=== PATIENT | female | born 1965 | race Two or more races ===

== ENCOUNTER 2024-01-08 17:35 | Inpatient (IN) | payer MEDICAID ==
[~2024-01-08] VITALS: Ht 154.9 cm; Wt 80.4 kg
[2024-01-08 18:38] LABS: Basophils # (auto) 0 10 ^3/uL (0-0.2); Basophils % (auto) 0.5 % (0.0-2.0); Eosinophils # (auto) 0.1 10 ^3/uL (0-0.8); Eosinophils % (auto) 0.7 % (0.0-7.0); Hematocrit 46.8 % (36.0-46.0); Hemoglobin 15.7 g/dL (12.2-16.2); Lymphocytes # (auto) 2.3 10 ^3/uL (0.4-5.4); Lymphocytes % (auto) 26.7 % (10.0-50.0); Mean Corpuscular Hemoglobin 29.5 pg (28.0-32.0); Mean Corpuscular Hgb Conc. 33.6 g/dL (32.0-36.0); Mean Corpuscular Volume 87.7 fL (80.0-100.0); Monocytes # (auto) 0.5 10 ^3/uL (0-1.3); Monocytes % (auto) 5.2 % (0.0-12.0); Neutrophils # (auto) 5.8 10 ^3/uL (1.6-8.6); Neutrophils % (auto) 66.9 % (37.0-80.0); Nucleated Red Blood Cells % 0.1 %; Red Blood Cells 5.34 10^6/uL (4.0-5.20); White Blood Cell 8.6 10^3/uL (4.4-10.8)
[2024-01-08] MEDS: SODIUM CHLORIDE 0.9% 1,000 ML IVB ONE (18:38)
[2024-01-08 18:52] LABS: Urine Bacteria FEW /hpf (None Seen); Urine Blood Negative /uL (Negative); Urine Clarity Clear (Clear); Urine Color Colorless (Yellow); Urine Protein, UAD Negative (Negative); Urine Specific Gravity 1.007 (1.001-1.035); Urine Urobilinogen Normal (Negative); Urine WBC 1 /hpf (0 - 5); Urine pH 6.5 (5.0-9.0)
[2024-01-08 18:53] VITALS: PULSE 113; RESP 20; O2SAT 97
[2024-01-08 18:57] LABS: Alanine Aminotransferase 42 U/L (7-40); Alkaline Phosphatase 131 U/L (46-116); Anion Gap 7 (5-15); Aspartate Aminotransferase 43 U/L (13-40); BUN/Creatinine Ratio 24.6 (10.0-20.0); Blood Alcohol < 3.0 mg/dL (<10); Blood Urea Nitrogen 17 mg/dL (9-23); Calcium 10.2 mg/dL (8.5-10.1); Carbon Dioxide 25 mmol/L (20-30); Chloride 108 mmol/L (98-107); Glucose 118 mg/dL (74-106); Potassium 4.2 mmol/L (3.5-5.1); Sodium 140 mmol/L (136-145)
[2024-01-08 18:58] LABS: Total Protein 7.5 g/dL (5.7-8.2)
[2024-01-08 19:07] LABS: Amphetamine Screen, Urine Neg (NEGATIVE)
[2024-01-08 19:08] LABS: Barbiturate Scree,Urine Neg (NEGATIVE); Benzodiazephine Screen, Urine Neg (NEGATIVE); Cannabinoid Screen, Urine Neg (NEGATIVE); Cocaine Screen, Urine Neg (NEGATIVE); Opiate Scree,Urine Neg (NEGATIVE); Phencyclidine Screen, Urine Neg (NEGATIVE)
[2024-01-08 19:20] VITALS: PULSE 113; RESP 17; O2SAT 97
[2024-01-08] MEDS ORDERED: ONDANSETRON HCL 4 MG/2 ML VIAL IV PRN (21:15)
[2024-01-08] MEDS ORDERED: MORPHINE SULFATE INJ 2 MG/ml SYRG IV PRN (21:15)
[2024-01-08] MEDS ORDERED: NITROGLYCERIN 0.4 MG SL TAB SL PRN (21:15)
[2024-01-08] MEDS: ACETAMINOPHEN 325 MG TAB PO PRN (23:21)
[2024-01-08] MEDS: ENOXAPARIN SOD 100 MG/1 ML SYRINGE SC ONE (23:23)
[2024-01-09 05:16] LABS: Basophils # (auto) 0 10 ^3/uL (0-0.2); Basophils % (auto) 0.6 % (0.0-2.0); Eosinophils # (auto) 0.1 10 ^3/uL (0-0.8); Hematocrit 41.4 % (36.0-46.0); Lymphocytes # (auto) 2.8 10 ^3/uL (0.4-5.4); Lymphocytes % (auto) 36.9 % (10.0-50.0); Mean Corpuscular Hemoglobin 29.4 pg (28.0-32.0); Mean Corpuscular Hgb Conc. 33.7 g/dL (32.0-36.0); Mean Corpuscular Volume 87.1 fL (80.0-100.0); Monocytes # (auto) 0.5 10 ^3/uL (0-1.3); Monocytes % (auto) 6.6 % (0.0-12.0); Neutrophils # (auto) 4.1 10 ^3/uL (1.6-8.6); Neutrophils % (auto) 54.9 % (37.0-80.0); Nucleated Red Blood Cells % 0.1 %; Red Blood Cells 4.75 10^6/uL (4.0-5.20); Red Cell Distribution Width 13.9 % (11.8-14.3); White Blood Cell 7.5 10^3/uL (4.4-10.8)
[2024-01-09 05:34] LABS: Alanine Aminotransferase 28 U/L (7-40); Alkaline Phosphatase 100 U/L (46-116); Anion Gap 5 (5-15); Blood Urea Nitrogen 12 mg/dL (9-23); Calcium 9.4 mg/dL (8.7-10.4); Carbon Dioxide 26 mmol/L (20-30); Chloride 109 mmol/L (98-107); Glucose 97 mg/dL (74-106); Potassium 3.8 mmol/L (3.5-5.1); Sodium 140 mmol/L (136-145)
[2024-01-09 05:35] LABS: Aspartate Aminotransferase 35 U/L (13-40); Bilirubin, Total 2.1 mg/dL (0.2-1.0); Total Protein 6.7 g/dL (5.7-8.2)
[2024-01-09] MEDS: LEVOTHYROXINE SODIUM 25 MCG TAB PO SCH (06:00)
[2024-01-09 08:44] LABS: Magnesium 2.2 mg/dL (1.6-2.6)
[2024-01-09] MEDS: ASPirin 81 mg TAB PO SCH (08:58)
[2024-01-09] MEDS: LISINOPRIL 5 MG TAB PO SCH (08:59)
[2024-01-09] MEDS: ENOXAPARIN SOD 100 MG/1 ML SYRINGE SC SCH (10:00)
[2024-01-09] MEDS ORDERED: LORazepam 2MG/ML-1ML VIAL IV PRN (10:45)
[2024-01-09 13:00] VITALS: BP 118/81; PULSE 82; RESP 18; TEMP 97.8; O2SAT 96
[2024-01-09] MEDS ORDERED: LISI-275 PO (13:44)
[2024-01-09] MEDS: KETOROLAC TROMETH 30 MG/ML 1ML VIAL IV ONE (16:47)
[2024-01-09 16:53] VITALS: BP 117/62; PULSE 86; RESP 20; TEMP 97.8; O2SAT 98
[2024-01-09] MEDS ORDERED: LEVO25TA6 PO (17:10)
[2024-01-09 20:00] VITALS: PULSE 77
[2024-01-09 20:05] VITALS: PULSE 85; RESP 18; O2SAT 98
[2024-01-09] MEDS: ATORVASTATIN 20 MG TAB PO SCH (21:18)
[2024-01-09] MEDS ORDERED: KETOROLAC TROMETH 30 MG/ML 1ML VIAL IV PRN (23:00)
[2024-01-10] VITALS (11 sets, daily range): BP systolic 105–141; BP diastolic 69–86; PULSE 76–102; RESP 14–19; TEMP 37; O2SAT 95–99
[2024-01-10 06:29] LABS: Anion Gap 6 (5-15); Carbon Dioxide 26 mmol/L (20-30); Chloride 109 mmol/L (98-107); Potassium 3.7 mmol/L (3.5-5.1); Sodium 141 mmol/L (136-145)
[2024-01-10 06:30] LABS: Calcium 9.8 mg/dL (8.5-10.1)
[2024-01-10 06:35] LABS: BUN/Creatinine Ratio 19.1 (10.0-20.0); Blood Urea Nitrogen 13 mg/dL (9-23); Glucose 102 mg/dL (74-106)
[2024-01-10] MEDS: LIDOCAINE VISCOUS 2% 15ML UD PO ONE (09:13)
[2024-01-10] MEDS: fentaNYL CITRATE 100 MCG/2 ML VL IV ONE (09:16)
[2024-01-10] MEDS: MIDAZOLAM HCL 2MG/2ML 2ml VIAL (1mg/ml) IV ONE (09:16)
[2024-01-10] MEDS: NITROGLYCERIN 0.2MG/HR TOPICAL PATCH TD SCH (12:02)
[2024-01-10] MEDS ORDERED: METO25TA5 PO (13:26)
[2024-01-10] MEDS ORDERED: ATOR-507 PO (13:26)
[2024-01-10] MEDS ORDERED: ASPI-498 OR (13:26)
[2024-01-14 15:07] LABS: Vitamin D 25-Hydroxy 19 ng/mL (.); Vitamin D-2 25-Hydroxy <1.0 ng/mL (.); Vitamin D-3 25-Hydroxy 18 ng/mL (.)
[2024-01-16 10:06] LABS: Vitamin B1, Whole Blood 130.3 nmol/L (66.5-200.0)
== END 2024-01-10 17:39 | disposition home or self-care (01) | DRG 45 ==
LOC: ER 17:35 → TELE 21:05 → TELE-WESTW 01-09 12:54
PROVIDERS: ADMIT Nurse Practitioner; ATTEND Nurse Practitioner Acute Care
PROC: B246ZZ4 Ultrasonography of Right and Left Heart, Transesophageal (ICD-10-PCS; principal; 2024-01-10)
DX: I63.9 Cerebral infarction, unspecified (principal); I21.A1 Myocardial infarction type 2; R74.01 Elevation of levels of liver transaminase levels; E78.5 Hyperlipidemia, unspecified; I10 Essential (primary) hypertension; E66.9 Obesity, unspecified; E07.9 Disorder of thyroid, unspecified; I49.3 Ventricular premature depolarization; I16.1 Hypertensive emergency; I25.2 Old myocardial infarction; Z68.33 Body mass index [BMI] 33.0-33.9, adult
CPT/HCPCS: 36415; 70450; 70551; 71045; 76705; 80048; 80053; 80061; 80307; 80320; 81001; 82140; 82306; 82607; 82962; 83036; 83605; 83735; 83880; 84425; 84443; 84484; 85025; 85379; 87040; 92610; 93005; 93312; 93886; 96360; 96361; 97110; 97116; 97163; 97530; 99152; 99291; G0378; J1885; J2250

== ENCOUNTER → 2024-05-23 | Outpatient (CLI) | payer MEDICAID ==
[~2024-05-23] VITALS: Ht 152.4 cm; Wt 75.7 kg
[~2024-05-23] MED LIST: ADENOSINE 64 MG in GIVE UN-DILUTED 0 ML IV ONE; ASPI-498 OR; ATOR-507 PO; LEVO25TA6 PO; LISI-275 PO; METO25TA5 PO
== END | disposition home or self-care (01) ==
LOC: XYW 09:34
PROVIDERS: ATTEND Internal Medicine
DX: R00.1 Bradycardia, unspecified (principal); R07.9 Chest pain, unspecified; R06.02 Shortness of breath; R60.9 Edema, unspecified; I50.9 Heart failure, unspecified; I42.0 Dilated cardiomyopathy
CPT/HCPCS: 78452; 93017; A9500; J0153

== ENCOUNTER → 2024-08-08 | Outpatient (CLI) | payer MEDICAID ==
[~2024-08-08] MED LIST changes: -ADENOSINE 64 MG in GIVE UN-DILUTED 0 ML IV ONE
== END | disposition home or self-care (01) ==
LOC: XYW 12:08
PROVIDERS: ATTEND Internal Medicine
DX: I08.3 Combined rheumatic disorders of mitral, aortic and tricuspid valves (principal); I47.20 Ventricular tachycardia, unspecified
CPT/HCPCS: 93306

== ENCOUNTER → 2024-08-13 | Outpatient (CLI) | payer MEDICAID ==
[~2024-08-13] MED LIST changes: +AMIO200T33 PO; +ERGO1CAP23 PO
[2024-08-13 09:56] LABS: Basophils # (auto) 0.1 10 ^3/uL (0-0.2); Basophils % (auto) 0.9 % (0.0-2.0); Eosinophils # (auto) 0.2 10 ^3/uL (0-0.8); Eosinophils % (auto) 2.2 % (0.0-7.0); Hematocrit 43.4 % (36.0-46.0); Hemoglobin 14.8 g/dL (12.2-16.2); Lymphocytes # (auto) 2.5 10 ^3/uL (0.4-5.4); Mean Corpuscular Hemoglobin 30.2 pg (28.0-32.0); Mean Corpuscular Hgb Conc. 34.1 g/dL (32.0-36.0); Mean Corpuscular Volume 88.7 fL (80.0-100.0); Monocytes # (auto) 0.6 10 ^3/uL (0-1.3); Neutrophils # (auto) 4.1 10 ^3/uL (1.6-8.6); Neutrophils % (auto) 54.9 % (37.0-80.0); Nucleated Red Blood Cells % 0.1 %; Platelet Count (auto) 243 10^3/uL (140-450); Red Blood Cells 4.89 10^6/uL (4.0-5.20); Red Cell Distribution Width 13.9 % (11.8-14.3); White Blood Cell 7.4 10^3/uL (4.4-10.8)
[2024-08-13 10:15] LABS: INR 1.05 (0.9-1.15); Partial Thromboplastin Time 25.2 SEC (24.5-34.5); Prothrombin Time 11.1 sec (9.3-11.8)
[2024-08-13 10:51] LABS: Alanine Aminotransferase 60 U/L (7-40); Albumin 4.5 g/dL (3.2-4.8); Alkaline Phosphatase 116 U/L (46-116); Anion Gap 3 (5-15); Aspartate Aminotransferase 39 U/L (13-40); BUN/Creatinine Ratio 20.5 (10.0-20.0); Bilirubin, Total 1.4 mg/dL (0.2-1.0); Blood Urea Nitrogen 18 mg/dL (9-23); Calcium 10.3 mg/dL (8.7-10.4); Carbon Dioxide 32 mmol/L (20-31); Chloride 106 mmol/L (98-107); Glucose 94 mg/dL (74-106); Potassium 4.1 mmol/L (3.5-5.1); Sodium 141 mmol/L (136-145)
[2024-08-13 10:52] LABS: Total Protein 7.5 g/dL (5.7-8.2)
== END | disposition home or self-care (01) ==
LOC: LAB 09:34
PROVIDERS: ATTEND Internal Medicine
DX: Z01.812 Encounter for preprocedural laboratory examination (principal)
CPT/HCPCS: 36415; 80053; 85025; 85610; 85730

== ENCOUNTER 2024-08-14 08:01 | Day surgery (SDC) | payer MEDICAID ==
[2024-08-14] VITALS (7 sets, daily range): BP systolic 110–148; BP diastolic 64–92; PULSE 63–76; RESP 16–20; TEMP 97.9; O2SAT 96–100
[~2024-08-14] VITALS: Ht 152.4 cm; Wt 79.8 kg
[~2024-08-14 08:01] MED LIST changes: -ATOR-507 PO; -LEVO25TA6 PO; -METO25TA5 PO
[2024-08-14] MEDS ORDERED: VERAPAMIL 2.5MG/ML INJ 2ML VIAL IV ONE (11:00)
[2024-08-14] MEDS ORDERED: HEPARIN SODIUM (PORCINE) 5000 UNITS/ML 1ML VIAL ONE (11:00)
[2024-08-14] MEDS ORDERED: fentaNYL CITRATE 100 MCG/2 ML VL ONE (11:00)
[2024-08-14] MEDS ORDERED: ANGIOMAX 250 MG VIAL IV ONE (11:00)
[2024-08-14] MEDS ORDERED: SODIUM CHL 0.9% 0 ML ONE (11:01)
[2024-08-14] MEDS ORDERED: MIDAZOLAM HCL 2MG/2ML 2ml VIAL (1mg/ml) ONE (11:01)
[2024-08-14] MEDS ORDERED: LIDOCAINE 2%HCL (LOCAL ANESTH.) INJ 20ML MDV ONE (11:06)
--- NOTE | 2024-08-14 12:47 | DVHOP2 ---
Operative Report - 2 Report Details Date: 08/14/24 Preop Diagnosis: Hypertrophic obstructive cardiomyopathy Postop Diagnosis: s/p LRHC Hypertrophic obstructive cardiomyopathy Surgeon: Amador Wilkerson MD Anesthesiologist: Conscious sedation Anesthesia: Mac, Local Consent: The patient was informed of the risks and benefits of the procedure. These include but are not limited to complications of anesthesia, postoperative infection, incomplete relief of symptoms, recurrence of symptoms, damage to blood vessels, nerves and tendons, deep venous thrombosis, pulmonary embolism and possible need for repeat surgery in the future. Complications: No complications Estimated Blood Loss: 5 cc Findings: Obstructive cardiomyopathy Indications for Surgery: Chest pain Name of Procedure Performed Right and left heart catheterization bilateral cine coronary angiography and left ventriculography Procedure Details Procedure Details: Prior local anesthesia with 2% lidocaine to the right wrist and a catheter placed also in the antecubital vein we were able to place six Czech sheaths. Through the venous sheath we placed a five Czech [place]-Anju catheter into the right atrium right ventricle pulmonary artery and capillary wedge pressure positions where pressures were obtained And recorded. Through a six Czech arterial sheath we were able to cannulate the right and left coronary ostia and ventriculography with Ramón catheters. No complications. Hemodynamics: Right atrial pressure was approximately five. Right ventricular pressure was 30/5 with a pulmonary artery pressure of 30/20 with a capillary wedge pressure of 15. Aortic blood pressure was 120/ 80. Left ventricular pressure was 190 over of 15. Cardiac output was approximately 3.57 liters/minute. There was approximately a 60-80 mm gradient across the septum. There was no systolic anterior motion noted. There is obstructive cardiomyopathy noted. Coronary anatomy: RCA is a large vessel it is normal in its proximal mid and distal segments. The PDA and posterolateral branches are normal. Left main is short but normal. Circumflex is large with two marginals and posterolateral is RP of significant disease. Left anterior descending is a large vessel it is normal in its proximal mid and distal segments as are diagonals. The left anterior descending coronary artery distally is smaller and tapers out. Ventriculography in the REZA projection shows hypercontractility of the basal and proximal septum of the septal anterior and inferior basal segments. There is akinesis of the apical segments at both the anterior and inferior lateral velasquez. Overall estimated ejection fraction is calculated at about 40%. Impression obstructive cardiomyopathy. Apical dyskinesis. No significant coronary artery disease. Overall decreased left ventricular ejection fraction. Recommendations we will consider Cam[facility] / medical therapy and possibly ICD placement. Condition Good Disposition Home Date of Service: Aug 14, 2024 Billing Provider: AMADOR WILKERSON Sr., MD Cardiology Common Codes: 95790-MIEGZSP INP/OBS CARE (High) Cardiology Procedure Codes: 66714-D/R & L HEART CATH FOR LVG AMADOR WILKERSON Sr., MD Aug 14, 2024 12:47
== END 2024-08-14 13:59 | disposition home or self-care (01) ==
LOC: CATH 08:01
PROVIDERS: ATTEND Internal Medicine
DX: I42.1 Obstructive hypertrophic cardiomyopathy (principal); Z79.899 Other long term (current) drug therapy; Z98.51 Tubal ligation status; Z90.710 Acquired absence of both cervix and uterus; Z88.0 Allergy status to penicillin; Z82.49 Family history of ischemic heart disease and other diseases of the circulatory system; Z83.3 Family history of diabetes mellitus
CPT/HCPCS: 93460; C1769; C1887; C1894; J1644; J2250; J3010; 99152; 99153